=== PATIENT | female | born 2000 | race African-American/Black ===

== ENCOUNTER 2024-06-28 22:33 | Emergency (ER) | payer OTHER, MEDICAID, SELFPAY ==
[2024-06-28 22:33] VITALS: TEMP 36.7; BMI 26.4
--- NOTE | 2024-06-28 22:35 | DI.CT.S_ITS ---
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 For radiation dose reduction, the following was used: automated exposure control, adjustment of mA and/or kV according to patient size. COMPARISON: None. FINDINGS: Image quality: Diagnostic. CSF spaces: Ventricular shunt is present from a right frontal approach terminating near the 3rd ventricle. No priors are available for comparison. Ventricles are mild in size. Brain: No midline shift. No intracranial masses or hemorrhage. Ugarte-white matter interface is normal. 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 Skull and face: Calvarium and visualized facial bones are intact, without suspicious lesions. Sinuses: Visualized sinuses and mastoids are clear. IMPRESSION: Right ventricular shunt as above. No priors are available for comparison to determine baseline ventricular size. If clinical symptoms are present, neurosurgery consult is recommended. Dictated by: Thalia Alexander M.D. on 06/28/2024 at 23:24 Approved by: Thalia Alexander M.D. on 06/28/2024 at 23:27
[2024-06-28 22:36] VITALS: PULSE 79; O2SAT 98
--- NOTE | 2024-06-28 22:41 | PC.NURSE ---
Mother states She's having one now. while RN in room finishing triage. Pt noted to become tachycardic and pulse ox drop, smacking lips. Pt will look in direction of name being called but will not verbally respond. No clonic tonic or other notable body movements note. Episode lasted approxc
--- NOTE | 2024-06-28 22:44 | ED_ITS ---
HPI - Seizure General Chief Complaint: Seizure Stated Complaint: seizures Time Seen by Provider: 06/28/24 22:34 Source: family Mode of arrival: EMS Limitations: no limitations History of Present Illness HPI Narrative: Patient was a 23-year-old female. Arrives by EMS with mother for evaluation of seizure-like activity. Patient has a history of seizures. Mother states her last seizure was a little over 1 year ago. She had seizures as a child. Was on antiseizure medication for a period of time but mother states that it made her angry so they took her off of her medication on their own. She was not seen a primary doctor or neurologist in many years. 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 Has not had this evaluated in a very long time. Mother states that today the child had multiple episodes of what she describes as seizure activity. unsure as to how long the events lasted today. Mother states the child did return to normal in between the events. They did seemed to last longer today than what they did 1 year ago. No trauma. No loss of bowel or bladder. Patient's mother states that the patient's father gave her a Tylenol p.m. approximately 1 hour prior to arrival to try to calm her down mother states the reason that they have not followed up with primary care doctor or neurologist was because both her and her work and they have not had time to follow-up. Mother reports the child has not been sick recently. No fevers. No vomiting. No skin rashes. Related Data Previous Rx's Medication Instructions Recorded levetiracetam 500 mg tablet 500 mg PO BID #60 tabs 06/29/24 (Darren) Allergies Allergy/AdvReac Type Severity Reaction Status Date / Time No Known Drug Allergies Allergy Verified 06/28/24 23:09 Review of Systems Review of Systems Narrative: Provided by mother. Patient History Social History Smoking Status: Never smoker Smoking Status: Never smoker Substance Use Type: does not use Exam Initial Vital Signs Initial Vital Signs: Vital Signs Temperature 98.1 F 06/28/24 22:33 Const General: cooperative HENMT Head: normal to inspection and normocephalic Resp Effort & Inspection: normal respiratory effort Auscultation: clear to auscultation bilaterally Cardio Rate: regular rate Rhythm: regular rhythm GI Inspection: normal to inspection Skin General: no rashes or lesions noted Neuro Other: Patient was able to move all 4 extremities equally. Was able to walk to the bathroom with the assistance of her mother. Extrem General: capillary refill normal Course Orders Ordered: ED Orders 06/28/24 22:35 CT head/brain wo con Stat 06/28/24 22:45 Complete Blood Count AUTO DIFF Stat Comprehensive Metabolic Panel Stat Lipase Stat Test Serum,Qual Stat Prolactin Stat 06/29/24 00:27 Consult to [facility] [place] - Child Care Attendant Stat Discontinued Medications Levetiracetam 1,000 mg/ Sodium (Chloride) 110 mls @ 440 mls/hr IV NOW ONE Stop: 06/28/24 22:40 Last Infusion: 06/28/24 23:25 Dose: Infused Documented By: Admin: 06/28/24 22:47 Dose: 440 mls/hr Documented By: CLAIRE Lorazepam (Lorazepam 2 Mg/Ml Inj) 1 mg IV NOW ONE Stop: 06/28/24 22:40 Last Admin: 06/28/24 22:46 Dose: 1 mg Documented By: CLAIRE Vital Signs Vital signs: Vital Signs - 8 hr 06/28/24 22:33 06/28/24 22:36 06/28/24 23:00 Temperature 98.1 F Pulse Rate 79 Respiratory Rate Blood Pressure 130/85 Pulse Oximetry 98 Oxygen Delivery Method 06/28/24 23:00 06/28/24 23:30 06/28/24 23:30 Temperature Pulse Rate 71 61 Respiratory Rate 19 Blood Pressure 121/80 Pulse Oximetry 97 97 Oxygen Delivery Method 06/29/24 00:00 06/29/24 00:00 06/29/24 00:11 Temperature Pulse Rate 62 Respiratory Rate 21 Blood Pressure 95/57 L 113/59 L Pulse Oximetry 97 Oxygen Delivery Method 06/29/24 00:11 Temperature Pulse Rate 67 Respiratory Rate 21 Blood Pressure Pulse Oximetry 99 Oxygen Delivery Method Room Air MDM - Seizure Lab Data Attestation: I reviewed the patient's lab results. 06/28/24 22:45 06/28/24 22:45 Labs: Lab Results 06/28/24 Range/Units 22:45 WBC 8.1 (4.5-11.0) X10^3/uL RBC 4.10 (4.0-5.2) X10^6/uL Hgb 12.9 (12.0-16.0) g/dL Hct 38.5 (36-46) % MCV 93.8 (80-100) fL MCH 31.4 (26-34) PG MCHC 33.5 (30-36) % RDW 12.9 (11.6-14.8) % Plt Count 293 (150-400) X10^3/uL Neut % (Auto) 79.7 H (50-75) % Lymph % (Auto) 16.5 L (25-40) % Medina % (Auto) 3.3 (3-14) % Eos % (Auto) 0.1 L (2-4) % Baso % (Auto) 0.4 (0-2) % Neut # (Auto) 6500 (0272-2998) /uL Lymph # (Auto) 1300 (3064-9102) /uL Medina # (Auto) 300 (0-900) /uL Eos # (Auto) 0 (0-450) /uL Baso # (Auto) 0 (0-100) /uL Sodium 123 L (137-145) mmol/L Potassium 4.0 (3.4-5.1) mmol/L Chloride 97 L (98-107) mmol/L Carbon Dioxide 22 (22-32) mmol/L BUN 7 (7-17) mg/dL Creatinine 0.49 L (0.52-1.04) mg/dL Estimated GFR > 60 (>60) mL/min BUN/Creatinine Ratio 14.3 (6-22) Glucose 128 H (70-100) mg/dL Calcium 8.6 (8.4-10.2) mg/dL Total Bilirubin 0.6 (0.2-1.3) mg/dL AST 57 H (14-36) IU/L ALT 39 H (<35) IU/L Alkaline Phosphatase 68 (38-126) U/L Total Protein 7.2 (6.3-8.2) g/dL Albumin 4.1 (3.5-5.0) g/dL Globulin 3.1 (1.7-4.1) g/dL Albumin/Globulin Ratio 1.3 (1.0-2.8) Lipase 81 (23-300) U/L Prolactin 30.8 H (3.0-18.6) ng/mL Serum , Qual Negative (Negative) Imaging Data CT scan - head: Radiologist's Impression: PROCEDURE: CT HEAD/BRAIN WO CON INDICATIONS: hx of seizures, 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 For radiation dose reduction, the following was used: automated exposure control, adjustment of mA and/or kV according to patient size. COMPARISON: None. FINDINGS: Image quality: Diagnostic. CSF spaces: Ventricular shunt is present from a right frontal approach terminating near the 3rd ventricle. No priors are available for comparison. Ventricles are mild in size. Brain: No midline shift. No intracranial masses or hemorrhage. Ugarte-white matter interface is normal. 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 Skull and face: Calvarium and visualized facial bones are intact, without suspicious lesions. Sinuses: Visualized sinuses and mastoids are clear. IMPRESSION: Right ventricular shunt as above. No priors are available for comparison to determine baseline ventricular size. If clinical symptoms are present, neurosurgery consult is recommended. MDM Narrative Medical decision making narrative: Head CT does not show any overt signs of increased intracranial pressure. No trauma noted. Labs are unremarkable. Elevated prolactin. Patient was given Ativan and KeppraHere in the ER. She was able to ambulate to the bathroom with the assistance of her mother. I had an extensive discussion with the mother. We discussed the options to include starting on antiseizure medication versus observing the child to see if seizure activity returns. It appears that this is the 1st time that she was had a seizure in over a year. The last time she had a seizure the parents stated that they did not have her evaluated. I do feel that the patient does require a primaryCare doctor and referral to see Neurology. I expressed this to the mother. She was given information to make contactWith the primary care doctor. After this discussion the mother states that she was okay with starting the patient on antiseizure medicines. First dose was given here in the ER. A prescription was sent to the pharmacy Their choice. Patient seems to be recovering nicely so there was no indication for admission to the hospital. Does not meet criteria for status epilepticus. Mother was given return precautions. She expressed understanding and agreement with plan. Discharge Plan Departure Patient Disposition: Home Clinical Impression: Seizure-like activity Instructions: DI for Seizure (Not Epilepsy/Seizure Disorder) Activity Restrictions/Additional Instructions: It was important that Honorio has a primary care doctor. During normal business hours contact [phone]. This can beHelpful to establishing a primary care doctor for her. After discussion we are going to start her on antiseizure medicine. This is called Keppra. This is a 2 time a day medication. Please take it as directed. Return to the emergency department for new or worsening symptoms. Prescriptions: New levetiracetam [Keppra] 500 mg tablet 500 mg PO BID Qty: 60 2RF Referrals: Miscellaneous,Doctor, MD [Primary Care Provider] - Stand Alone Forms: Patient Portal/API/Survey
--- NOTE | 2024-06-28 22:44 | PC.NURSE ---
While completing triage mother states to RN She's having another one. Pt noted to become tachycardic and drop oxygen sats, lip smacking but no other tonic clonic or body movement noted. Pt will look in direction of name being called but will not respond. Episode lasted approx 45 seconds. Pt would then grunt or moan in response to name. Another 15 seconds and then pt began to respond verbally again.
[2024-06-28] MEDS: LORazepam 2 MG/ML INJ 1 MG IV (22:46)
[2024-06-28] MEDS: levETIRAcetam 1,000 MG in SODIUM CHLORIDE 0.9% 100 ML 440 MG IV (22:47)
--- NOTE | 2024-06-28 22:48 | PC.NURSE ---
Pt to imaging via stretcher with tech
[2024-06-28 22:54] LABS: Add Manual Diff / Slide Review NO; Basophils Absolute Auto 0 /uL (0-100); Basophils Percent Auto 0.4 % (0-2); Eosinophils Absolute Auto 0 /uL (0-450); Eosinophils Percent Auto 0.1 % (2-4); Hematocrit 38.5 % (36-46); Hemoglobin 12.9 g/dL (12.0-16.0); Lymphocytes Absolute Auto 1300 /uL (1100-4500); Lymphocytes Percent Auto 16.5 % (25-40); Mean Corpuscular HGB Conc 33.5 % (30-36); Mean Corpuscular Hemoglobin 31.4 PG (26-34); Mean Corpuscular Volume 93.8 fL (80-100); Monocytes Absolute Auto 300 /uL (0-900); Monocytes Percent Auto 3.3 % (3-14); Neutrophils Absolute Auto 6500 /uL (1500-7000); Neutrophils Percent Auto 79.7 % (50-75); Platelet Count 293 X10^3/uL (150-400); Red Cell Distribution Width 12.9 % (11.6-14.8); White Blood Cell Count 8.1 X10^3/uL (4.5-11.0)
[2024-06-28 23:00] VITALS: BP 130/85; PULSE 71; O2SAT 97
[2024-06-28 23:10] LABS: Pregnancy Test Serum,Qual Negative (Negative)
[2024-06-28 23:30] VITALS: BP 121/80; PULSE 61; RESP 19; O2SAT 97
[2024-06-28 23:54] LABS: Alanine Aminotransferase 39 IU/L (<35); Albumin 4.1 g/dL (3.5-5.0); Albumin Globulin Ratio 1.3 (1.0-2.8); Alkaline Phosphatase 68 U/L (38-126); Aspartate Aminotransferase 57 IU/L (14-36); BUN Creatinine Ratio 14.3 (6-22); Bilirubin Total 0.6 mg/dL (0.2-1.3); Blood Urea Nitrogen 7 mg/dL (7-17); Calcium 8.6 mg/dL (8.4-10.2); Carbon Dioxide 22 mmol/L (22-32); Chloride 97 mmol/L (98-107); Estimated Glomerular Filt Rate > 60 mL/min (>60); Globulin 3.1 g/dL (1.7-4.1); Glucose 128 mg/dL (70-100); HEMOLYSIS < 15 (0-50); Lipase 81 U/L (23-300); Sodium 123 mmol/L (137-145); Total Protein 7.2 g/dL (6.3-8.2)
[2024-06-29] VITALS: BP 95/57; PULSE 62; RESP 21; O2SAT 97
[2024-06-29 00:11] VITALS: BP 113/59; PULSE 67; RESP 21; O2SAT 99
[2024-06-29 00:11] LABS: Prolactin 30.8 ng/mL (3.0-18.6)
--- NOTE | 2024-07-01 14:01 | CM.SWNOTE ---
ED DIRECTOR OF CATEGORY MANAGEMENT Follow up Call: ED DIRECTOR OF CATEGORY MANAGEMENT consulted to assist with follow up care, no PCP establishment at this time. Reviewed chart. Patient is a 23 yo female, resident of [place], in the care of her mother due to a developmental delay, seizure hx and CHILD AND FAMILY THERAPIST shunt. ED DIRECTOR OF CATEGORY MANAGEMENT called all phone numbers in chart. [phone] (voice mail was for a Danii [employer] - not a contact in pt's chart) [phone] (no longer in service) [phone] (no longer in service) ED DIRECTOR OF CATEGORY MANAGEMENT also noted that pt's PCP is Dr. Jani Morgan who is no longer serving the [facility]. ED DIRECTOR OF CATEGORY MANAGEMENT will follow for PCP establishment if pt returns to ED or requests further assistance from Social Work. JASON Reid
== END 2024-06-29 00:34 | disposition home or self-care (01) ==
PROVIDERS: Emergency Provider Emergency Medicine
DX: R56.9 Unspecified convulsions (principal)
CPT/HCPCS: 36415; 70450; 80053; 83690; 84146; 84703; 85025; 96365; 96375; 99284; J1953; J2060